=== PATIENT | female | born 1965 | race Caucasian/White ===

== ENCOUNTER → 2019-09-30 | Outpatient (CLI) | payer OTHER ==
[~2019-09-30] VITALS: Ht 165.1 cm; Wt 86.2 kg
== END | disposition home or self-care (01) ==
LOC: Rad HDHVI 09:53
PROVIDERS: ATTEND Internal Medicine Cardiovascular Disease
DX: I95.9 Hypotension, unspecified (principal); G90.9 Disorder of the autonomic nervous system, unspecified; R07.9 Chest pain, unspecified; R06.02 Shortness of breath; R42 Dizziness and giddiness; E03.9 Hypothyroidism, unspecified; Z82.49 Family history of ischemic heart disease and other diseases of the circulatory system
CPT/HCPCS: 78452; 93017; 96374; A9500

== ENCOUNTER → 2019-10-06 | Outpatient (CLI) | payer OTHER | END | disposition home or self-care (01) | LOC: Rad HDHVI 08:15 | PROVIDERS: ATTEND Internal Medicine Cardiovascular Disease | DX: R42 Dizziness and giddiness (principal); R55 Syncope and collapse | CPT/HCPCS: 93306 ==

== ENCOUNTER → 2024-01-15 | Outpatient (CLI) | payer OTHER ==
[~2024-01-15] VITALS: Ht 174 cm; Wt 83.9 kg
--- NOTE | 2024-01-16 12:24 | DVHSR ---
APPROVED REPORT EXAM: Two-dimensional and M-mode echocardiogram with Doppler and color Doppler. DIMENSIONS LVDd4.4 (3.8-5.7cm)LA (2D)3.4 (1.9-4.0cm)Aortic Root3.3 (2.0-3.7cm) LVDs3.1 (2.5-4.0cm)LA (MM) (1.9-4.0cm)Aortic Cusp Exc1.7 (1.5-2.0cm) EF (%) 60.0 (55-70%)Rt. Atrium (1.9-4.0cm)Asc. Aorta cm IVSd1.0 (0.7-1.1cm)RV (D) (1.8-2.4cm) PWd1.0 (0.7-1.1cm) Mitral Valve MitralMitral Stenosis E wave0.67m/sMV Mean GR.mmHg A wave0.68m/sMV Peak GR.mmHg E/A ratio1.02D MVAcm2 DECEL [id number] 1/2 [place] Aortic Valve Aortic ValveAortic Stenosis LVOT Diameter2.0 (1.8-2.4cm)Doppler AVAcm2 2D AVA3.51cm2 Pulmonic Valve V21.10m/s Tricuspid Valve TR Velocity2.81m/s [id number] LEFT VENTRICLE The left ventricle is normal size. The left ventricle is normal in structure and function. The Ejection Fraction is within normal limits. RIGHT VENTRICLE The right ventricle is normal size. ATRIA The left atrial size is normal. The right atrium size is normal. The interatrial septum is intact with no evidence for an atrial septal defect. MITRAL VALVE The mitral valve is normal in structure and function. There is no mitral valve regurgitation noted. PULMONIC VALVE The pulmonic valve is not well visualized. TRICUSPID VALVE The tricuspid valve is grossly normal. There is trace to mild tricuspid regurgitation. Right ventricular systolic pressure is 30-40 mmHg. AORTIC VALVE The aortic valve opens well. No aortic regurgitation is present. GREAT VESSELS The aortic root is normal size. PERICARDIAL EFFUSION There is no pericardial effusion. Other Information Technically limited study due to body habitus and implants. Conclusion EF >55%
== END | disposition home or self-care (01) ==
LOC: Rad HDHVI 14:37
PROVIDERS: ATTEND Internal Medicine Cardiovascular Disease
DX: I07.1 Rheumatic tricuspid insufficiency (principal); R55 Syncope and collapse; R42 Dizziness and giddiness; I20.0 Unstable angina; Z82.49 Family history of ischemic heart disease and other diseases of the circulatory system; I95.9 Hypotension, unspecified
CPT/HCPCS: 78452; 93017; 93306; 96374; A9500